=== PATIENT | male | born 1955 | race Caucasian/White ===

== ENCOUNTER 2020-04-22 13:12 | Emergency (ER) | payer MEDICARE, OTHER ==
[2020-04-22 13:41] LABS: RED BLOOD COUNT 4.69 M/UL (4.20-5.50); WHITE BLOOD COUNT 5.4 K/UL (4.5-11.0)
[2020-04-22 14:07] LABS: BUN/CREATININE RATIO 21 (0-10)
[2020-04-22] MEDS ORDERED: K-DUR TAB 20 M20 MEQ PO (18:13)
== END 2020-04-22 18:35 | disposition home or self-care (01) ==
LOC: ER1 13:12
PROVIDERS: Physician Assistant Medical
DX: E87.6 Hypokalemia (principal); R00.1 Bradycardia, unspecified; I10 Essential (primary) hypertension; Z79.899 Other long term (current) drug therapy
CPT/HCPCS: 71045; 80053; 82550; 82553; 83735; 83874; 84439; 84443; 84484; 85025; 93005; 99284